=== PATIENT | male | born 1980 | race Hispanic/Latino ===

== ENCOUNTER 2021-06-01 15:50 | Emergency (ER) | payer OTHER ==
[~2021-06-01] VITALS: Ht 182.9 cm; Wt 113.4 kg
--- NOTE | 2021-06-01 19:37 | NUR ---
Ambulatory to ER 8 with c/o rash on arms, around eyes, and on "other places he doesn't want to say."
[2021-06-01 19:58] VITALS: BP 155/100
[2021-06-01 20:10] VITALS: BP 155/100
[2021-06-01] MEDS ORDERED: BENADRYL PO STA (20:15)
[2021-06-01] MEDS ORDERED: DEXAMETHASONE 10 MG/ML VIAL IM STA (20:15)
--- NOTE | 2021-06-01 20:28 | ER.PDOC ---
General Chief Complaint: Skin Rash/Abscess Stated Complaint: RASH ON RT ARM Time seen by MD: 20:22 Source: patient Exam Limitations: no limitations History of Present Illness Initial Comments Skin rash of right forearm for 10 days after contact with poison pilar. He has itching. Severity: moderate Location: RUE Quality: itchy Exposure: poison pilar/oak Past Medical History Medical History: diabetes, hypertension Surgical History: appendectomy Family History Significant Family History: no pertinent family hx Social History Smoking: non-smoker Alcohol Use: none Drug Use: none Constitutional: no symptoms reported EENTM: no symptoms reported Respiratory: no symptoms reported Cardiovascular: no symptoms reported Gastrointestinal: no symptoms reported Skin: see HPI All Other Systems: Reviewed and Negative Physical Exam General Appearance: alert, no distress Skin: skin rash Location: RUE (distal forearm) Character: papular, vesicular, erythematous With: warmth, inflammation Neck: trachea midline, no swelling Respiratory: no resp. distress, breath sounds nml CVS: reg. rate & rhythm, heart sounds nml Abdomen: non-tender, no organomegaly NEURO/PSYCH: oriented x 3, CN's nml as tested, motor nml, sensation nml, mood/affect nml Results/Orders Results/Orders Vital Signs Date Time Temp Pulse Resp B/P (MAP) Pulse Ox O2 Delivery O2 Flow Rate FiO2 06/01/21 20:11 97.7 96 20 97 06/01/21 20:10 97.7 96 20 06/01/21 19:58 97.7 96 20 97 Progress Progress Patient received Decadron IM and Benadryl here. ER DEPART Departure Time of Disposition: 20:26 Disposition: 01 HOME / SELF CARE / HOMELESS Impression: Primary Impression: Poison pilar dermatitis Condition: Stable Referrals: PCP,UNKNOWN (PCP) PRIMARY CARE PROVIDER Additional Instructions: Hydroxyzine 1% hydrocortisone cream Prednisone Keflex Follow-up with your PCP in 3 to 5 days Return to ED if worse or concerns Duration or Time Spent with Pa: 10 min RIC HOANG MD Jun 01, 2021 20:28
[2021-06-01] MEDS ORDERED: BENADRYL PO ONE (20:29)
[2021-06-01] MEDS ORDERED: DECADRON ONE (20:29)
[2021-06-01 20:39] VITALS: BP 152/78
== END 2021-06-01 20:38 | disposition home or self-care (01) ==
LOC: ER 15:50
DX: L23.7 Allergic contact dermatitis due to plants, except food (principal); I10 Essential (primary) hypertension; E11.9 Type 2 diabetes mellitus without complications; Z90.49 Acquired absence of other specified parts of digestive tract
CPT/HCPCS: 96372; 99283; J1100; Q0163